=== PATIENT | male | born 1970 | race African-American/Black ===

== ENCOUNTER 2018-05-23 11:14 | Inpatient (IN) | payer OTHER ==
[2018-05-23 11:33] VITALS: BMI 21.3
--- NOTE | 2018-05-23 11:56 | HP ---
CIWA Score Nausea/Vomitin-Int. Nausea w/Dry Heave Muscle Tremors: None Anxiety: 0-No Anxiety, at Ease Agitation: 0-Normal Activity Paroxysmal Sweats: 2 Orientation: 0-Oriented Tacttile Disturbances: 0-None Auditory Disturbances: 1-Very Mild Visual Disturbances: 1-Very Mild Sensitivity Headache: 2-Mild CIWA-Ar Total Score: 10 - Admission Criteria OASAS Guidelines: Admission for Medically Managed Detox: Requires at least one of the followin. CIWA greater than 12 2. Seizures within the past 24 hours 3. Delirium tremens within the past 24 hours 4. Hallucinations within the past 24 hours 5. Acute intervention needed for co occurring medical disorder 6. Acute intervention needed for co occurring psychiatric disorder 7. Severe withdrawal that cannot be handled at a lower level of care (continued vomiting, continued diarrhea, abnormal vital signs) requiring intravenous medication and/or fluids 8. Admission ROS S - HPI Allergies/Adverse Reactions: Allergies Allergy/AdvReac Type Severity Reaction Status Date / Time No Known Allergies Allergy Verified 05/23/18 12:35 History of Present Illness: patient here requesting detox from cocaine, and alcohol use , reports 1 pints/ day and a case of beer /day x 27 years , prior detox 2 years ago , thinks it was at this facility , longest sobriety 18 months [place] another [place] , got bored and relapsed. latest use this morning 1 a.m. , starts drinking around 9 :30 am, reports some tremors if not drinking, denies seizures, + blackouts , + falls most recently last night with abrasion to knuckles of the right hand and forehead . cocaine use : 100 $/day x 27 years via inhalation, denies ivdu , finances habit through [employer] . denies legal issues tobacco : 1 ppd , requesting nrt w/ patch PMhx : denies PShx : jaw frx 10 years ago psych : denies lives w/ mother - Ebola screening Have you traveled outside of the country in the last 21 days: No Have you had contact with anyone from an Ebola affected area: No Have you been sick,other than usual withdrawal symptoms: No - Review of Systems Constitutional: See HPI EENT: reports: Other (glasses for reading , partial dentures) Respiratory: reports: No Symptoms reported Cardiac: reports: No Symptoms Reported GI: reports: Vomiting : reports: No Symptoms Reported Musculoskeletal: reports: Back Pain (chronic LBP) Integumentary: reports: Other (right hand superficial abrasion) Neuro: reports: Headache Psychiatric: reports: Orientated x3 Patient History - Smoking Cessation Smoking history: Current every day smoker Have you smoked in the past 12 months: Yes Aproximately how many cigarettes per day: 20 Hx Chewing Tobacco Use: No Initiated information on smoking cessation: No - Substances Abused Crack Route: Smoking Frequency: Daily Amount used: $100 Age of first use: 16 Date of Last Use: 05/23/18 Alcohol-vodka/beer Route: Oral Frequency: Daily Amount used: 2 pts./1 case Age of first use: 17 Date of Last Use: 05/23/18 Family Disease History - Family Disease History Family History: Denies Admission Physical Exam [facility] - Vital Signs Vital Signs: Vital Signs - 24 hr 05/23/18 11:31 Temperature 98.9 F Pulse Rate 93 H Respiratory 18 Rate Blood Pressure 113/70 - Physical General Appearance: Yes: No Apparent Distress, Nourished, Appropriately Dressed HEENTM: Yes: EOMI, Hearing grossly Normal, Normal ENT Inspection, Normocephalic , Normal Voice, PAUL, Pharynx Normal Respiratory: Yes: Chest Non-Tender, Lungs Clear, Normal Breath Sounds, No Respiratory Distress, No Accessory Muscle Use Neck: Yes: No masses,lesions,Nodules, Trachea in good position Breast: Yes: Breast Exam Deferred Cardiology: Yes: Regular Rhythm, Regular Rate, S1, S2, Tachycardia Abdominal: Yes: Normal Bowel Sounds, Non Tender, Flat, Soft Genitourinary: Yes: Within Normal Limits Back: Yes: Within Normal Limits, Normal Inspection Musculoskeletal: Yes: full range of Motion, Gait Steady, Pelvis Stable, Back pain Extremities: Yes: Normal Capillary Refill, Normal Inspection, Normal Range of Motion, Non-Tender Neurological: Yes: Fully Oriented, Alert, Motor Strength 5/5, Normal Mood/Affect , Normal Response Integumentary: Yes: Normal Color, Dry, Warm - Diagnostic (1) Cocaine dependence Current Visit: Yes Status: Chronic Qualifiers: Substance use status: uncomplicated Qualified Code(s): F14.20 - Cocaine dependence, uncomplicated (2) Alcohol dependence Current Visit: Yes Status: Acute Qualifiers: Substance use status: in withdrawal (3) Nicotine dependence Current Visit: Yes Status: Chronic Qualifiers: Nicotine product type: cigarettes BHS Breath Alcohol Content Breath Alcohol Content: 0 Urine Drug Screen - Results Drug Screen Negative: No Urine Drug Screen Results: ZACH-Cocaine
[2018-05-23] MEDS ORDERED: MAGNESIUM CITRATE 300 ML BOTTLE PO PRN (12:05)
[2018-05-23] MEDS ORDERED: MAG HYDROX/AL HYDROX/SIMETH 30 ML UNIT-DOSE CUP PO PRN (12:05)
[2018-05-23] MEDS ORDERED: MAGNESIUM HYDROX 2400MG/30ML ORAL SUSPENSION 30 ML CUP PO PRN (12:05)
[2018-05-23] MEDS ORDERED: guaiFENesin/D-METHORPHAN HB 10 ML UNIT-DOSE CUPS PO PRN (12:05)
[2018-05-23] MEDS ORDERED: MENTHOL/PHENOL 1 EACH UD MM PRN (12:05)
[2018-05-23] MEDS ORDERED: IBUPROFEN 400 MG TABLET (FP) PO PRN (12:05)
[2018-05-23] MEDS ORDERED: P-EPHED 60MG/TRIPROLIDI 2.5MG TABLET PO PRN (12:05)
[2018-05-23] MEDS ORDERED: ACETAMINOPHEN 325 MG TABLET (FP) PO PRN (12:05)
[2018-05-23] MEDS: BACITRACIN/POLYMYXIN B SULFATE 15 GM TUBE TP SCH ×2 (14:00→22:16)
[2018-05-23] MEDS: diazePAM 5 MG TABLET PO PRN (14:38)
[2018-05-23] MEDS: THIAMINE HCL 100 MG TABLET (FP) PO SCH (22:15)
[2018-05-23] MEDS: diazePAM 5 MG TABLET PO SCH (22:15)
[2018-05-23] MEDS: MELATONIN 5 MG TABLETS PO PRN (22:15)
[2018-05-24] MEDS: diazePAM 5 MG TABLET PO SCH ×3 (05:24→22:24)
[2018-05-24] MEDS: PRENATAL VITAMINS W/ FOLIC ACID TABLET (FP) PO SCH (09:57)
[2018-05-24] MEDS: NICOTINE 7 MG/24 HOURS TOPICAL PATCH TD SCH (09:57)
[2018-05-24] MEDS: BACITRACIN/POLYMYXIN B SULFATE 15 GM TUBE TP SCH ×2 (09:57→22:25)
[2018-05-24] MEDS: diazePAM 5 MG TABLET PO PRN (09:58)
[2018-05-24 10:54] LABS: HEMATOCRIT 43.1 % (35.4-49); HEMOGLOBIN 14.3 GM/dL (11.7-16.9); MCH 30.6 pg (25.7-33.7); MCHC 33.1 g/dl (32.0-35.9); MEAN CELL VOLUME 92.4 fl (80-96); MEAN PLT VOLUME 9.2 fl (7.5-11.1); PLATELET COUNT 245 K/MM3 (134-434); RBC 4.66 M/mm3 (4.00-5.60); WHITE BLOOD COUNT 6.9 K/mm3 (4.0-10.0)
[2018-05-24 11:13] LABS: ALBUMIN 3.9 g/dl (3.4-5.0); ALK PHOS 114 U/L (45-117); ANION GAP 9 MMOL/L (8-16); BILIRUBIN,TOTAL 0.6 mg/dL (0.2-1); BLOOD UREA NITROGEN 31 mg/dL (7-18); CALCIUM 9.1 mg/dL (8.5-10.1); CHLORIDE 103 mmol/L (98-107); CO2 27 mmol/L (21-32); CREATININE 1.4 mg/dL (0.55-1.3); GLUCOSE,RANDOM 94 mg/dL (74-106); POTASSIUM 4.1 mmol/L (3.5-5.1); SGOT/AST 45 U/L (15-37); SGPT/ALT 32 U/L (13-61); SODIUM 139 mmol/L (136-145)
--- NOTE | 2018-05-24 14:25 | PN ---
S CIWA - CIWA Score Nausea/Vomitin-No Nausea/No Vomiting Muscle Tremors: 3 Anxiety: 4-Mod. Anxious/Guarded Agitation: 3 Paroxysmal Sweats: 1-Minimal Palms Moist Orientation: 0-Oriented Tacttile Disturbances: 0-None Auditory Disturbances: 0-None Visual Disturbances: 0-None Headache: 0-None Present CIWA-Ar Total Score: 11 BHS Progress Note (SOAP) Subjective: SLIGHT ANXIETY, SWEATS, FATIGUE. Objective: 05/24/18 14:24 Vital Signs 05/24/18 05/24/18 05/24/18 06:40 09:50 13:10 Temperature 98.7 F 97.5 F L 97.8 F Pulse Rate 81 85 80 Respiratory 18 18 18 Rate Blood Pressure 101/58 L 116/76 122/78 Laboratory Tests 05/24/18 05/24/18 05:30 05:30 WBC 6.9 RBC 4.66 Hgb 14.3 Hct 43.1 MCV 92.4 MCH 30.6 MCHC 33.1 RDW 15.0 Plt Count 245 MPV 9.2 Sodium 139 Potassium 4.1 Chloride 103 Carbon Dioxide 27 Anion Gap 9 BUN 31 H Creatinine 1.4 H Creat Clearance w eGFR 53.86 Random Glucose 94 Calcium 9.1 Total Bilirubin 0.6 AST 45 H ALT 32 Alkaline Phosphatase 114 Total Protein 8.0 Albumin 3.9 Assessment: 05/24/18 14:24 WITHDRAWAL SX Plan: CONTINUE DETOX INCREASE PO FLUIDS
[2018-05-24] MEDS: THIAMINE HCL 100 MG TABLET (FP) PO SCH (22:24)
[2018-05-25] MEDS: diazePAM 5 MG TABLET PO SCH ×2 (10:17→22:31)
[2018-05-25] MEDS: PRENATAL VITAMINS W/ FOLIC ACID TABLET (FP) PO SCH (10:17)
[2018-05-25] MEDS: BACITRACIN/POLYMYXIN B SULFATE 15 GM TUBE TP SCH ×2 (10:18→22:31)
[2018-05-25] MEDS: NICOTINE 7 MG/24 HOURS TOPICAL PATCH TD SCH (10:18)
[2018-05-25 13:14] LABS: RPR REACTIVE 1:2 (NONREACTIVE)
[2018-05-25 15:02] LABS: TREPONEMA ANTIBODY REACTIVE (NONREACTIVE)
--- NOTE | 2018-05-25 17:48 | PN ---
S CIWA - CIWA Score Nausea/Vomitin-Mild Nausea/No Vomiting Muscle Tremors: 3 Anxiety: 3 Agitation: 3 Paroxysmal Sweats: 2 Orientation: 0-Oriented Tacttile Disturbances: 1-Very Mild Itch/Numbness Auditory Disturbances: 0-None Visual Disturbances: 0-None Headache: 0-None Present CIWA-Ar Total Score: 13 BHS Progress Note (SOAP) Subjective: Sweating, anxious, interrupted sleep Objective: 05/25/18 17:47 Last Vital Signs Temp Pulse Resp BP Pulse Ox 99.1 F 96 H 18 113/73 05/25/18 17:17 05/25/18 17:17 05/25/18 17:17 05/25/18 17:17 Laboratory Tests 05/24/18 05/24/18 05/24/18 05:30 05:30 05:30 WBC 6.9 RBC 4.66 Hgb 14.3 Hct 43.1 MCV 92.4 MCH 30.6 MCHC 33.1 RDW 15.0 Plt Count 245 MPV 9.2 Sodium 139 Potassium 4.1 Chloride 103 Carbon Dioxide 27 Anion Gap 9 BUN 31 H Creatinine 1.4 H Creat Clearance w eGFR 53.86 Random Glucose 94 Calcium 9.1 Total Bilirubin 0.6 AST 45 H ALT 32 Alkaline Phosphatase 114 Total Protein 8.0 Albumin 3.9 RPR Titer Reactive 1:2 H T.pallidum Ab (MHA) Reactive Labs reviewed: KEVIN noted Assessment: 05/25/18 17:47 Withdrawal symptoms Noted with KEVIN and reactive syphilis test Plan: Continue detox KEVIN: encouraged PO water intake, repeat BMP Follow up with patient regarding any history of syphilis
[2018-05-25] MEDS: THIAMINE HCL 100 MG TABLET (FP) PO SCH (22:31)
[2018-05-25] MEDS: MELATONIN 5 MG TABLETS PO PRN (22:31)
[2018-05-26 09:28] VITALS: BP 126/80; PULSE 96; TEMP 99.5
[2018-05-26 10:26] LABS: ANION GAP 4 MMOL/L (8-16); BLOOD UREA NITROGEN 12 mg/dL (7-18); CHLORIDE 102 mmol/L (98-107); CO2 32 mmol/L (21-32); CREATININE 1.2 mg/dL (0.55-1.3); GLUCOSE,RANDOM 95 mg/dL (74-106); POTASSIUM 4.8 mmol/L (3.5-5.1); SODIUM 138 mmol/L (136-145)
[2018-05-26] MEDS: PRENATAL VITAMINS W/ FOLIC ACID TABLET (FP) PO SCH (10:40)
[2018-05-26] MEDS: diazePAM 5 MG TABLET PO SCH (10:49)
[2018-05-26] MEDS: BACITRACIN/POLYMYXIN B SULFATE 15 GM TUBE TP SCH (10:49)
[2018-05-26] MEDS: NICOTINE 7 MG/24 HOURS TOPICAL PATCH TD SCH (10:49)
--- NOTE | 2018-05-26 10:57 | PN ---
[facility] Progress Note Note: PT REQUESTING TO LEAVE TODAY, STATES HE HAS TO LEAVE BECAUSE HE MEETS WITH HIS [employer] OFFICERS ON MONDAYS, BUT MISSED LAST WK'S S/P COMING TO DETOX. [employer]ECUTIVE THEREFORE THREATENING TO PUT OUT A WARRANT FOR HIS ARREST IF HE DOES NOT SHOW UP. PT A & O X 3, HAS STEADY GAIT, NO TREMORS, SWEATS NOR OTHER SYMPTOMS OF WITHDRAWALS NOTED. Vital Signs Temperature 99.5 F 05/26/18 09:27 Pulse Rate 96 H 05/26/18 09:27 Respiratory Rate 18 05/26/18 09:27 Blood Pressure 126/80 05/26/18 09:27 O2 Sat by Pulse Oximetry (%)
--- NOTE | 2018-05-26 11:02 | DS ---
[facility] Detox Discharge Summary Admission Date: 05/23/18 Discharge Date: 05/26/18 - History Additional Comments: PT FOR DISCHARGE HOME (SEE PROGRESS NOTES). PT WILL DO AFTERCARE BY ATTENDING OUT PT AT [facility]. PT'S RPR AND T.PALLIDIUM AB WERE REACTIVE, PT ENDORSES A HX OF SYPHILLIS BUT STATED HE GOT TREATED "MATTER OF FACTS I JUST GOT TWO SHOTS FOR IT ABOUT 3 WKS AGO. THEY TREATED ME A RESULT OF MY INCARCERATION". PT ENCOURAGED TO F/U WITH HIS PCP ON ANY NECESSARY ASSOCIATED TREATMENTS AND VERBALIZED UNDERSTANDING. PT STATES HE IS NOT ON ANY HOME MEDS. - Physical Exam Results Vital Signs: Vital Signs Temperature 99.5 F 05/26/18 09:27 Pulse Rate 96 H 05/26/18 09:27 Respiratory Rate 18 05/26/18 09:27 Blood Pressure 126/80 05/26/18 09:27 O2 Sat by Pulse Oximetry (%) Pertinent Admission Physical Exam Findings: WITHDRAWAL SX - Treatment Hospital Course: Detox Protocol Followed, Detoxed Safely, Responded well, Discharged Condition Good Patient has Accepted a Rehab Referral to: [facility] - Medication Discharge Medications: Ambulatory Orders Unobtainable 05/23/18 - Diagnosis (1) KEVIN (acute kidney injury) Current Visit: Yes Status: Acute (2) Alcohol dependence with uncomplicated withdrawal Current Visit: Yes Status: Acute (3) Cocaine dependence, uncomplicated Current Visit: Yes Status: Chronic (4) Nicotine dependence Current Visit: Yes Status: Chronic Qualifiers: Nicotine product type: cigarettes Substance use status: in withdrawal Qualified Code(s): F17.213 - Nicotine dependence, cigarettes, with withdrawal (5) History of syphilis Current Visit: Yes Status: Chronic - AMA Did Patient Leave Against Medical Advice: No
[2018-05-27] MEDS ORDERED: diazePAM 5 MG TABLET PO SCH (10:00)
== END 2018-05-26 11:05 | disposition home or self-care (01) | DRG 774 ==
LOC: YASAS 11:14 → Y3N 13:23
PROC: HZ2ZZZZ Detoxification Services for Substance Abuse Treatment (ICD-10-PCS; principal; 2018-05-23)
DX: F10.230 Alcohol dependence with withdrawal, uncomplicated (principal); F14.20 Cocaine dependence, uncomplicated; F17.210 Nicotine dependence, cigarettes, uncomplicated; N17.9 Acute kidney failure, unspecified; M54.5 Low back pain; G89.29 Other chronic pain; Z86.19 Personal history of other infectious and parasitic diseases
CPT/HCPCS: 36415; 80048; 80053; 85027; 86593; 86780